=== PATIENT | male | born 1980 | race African-American/Black ===

== ENCOUNTER 2016-11-02 18:48 | Emergency (ER) | payer MEDICAID, OTHER ==
[~2016-11-02] VITALS: Ht 185.4 cm; Wt 98.0 kg
[~2016-11-02 18:48] MED LIST: NO MEDS
[2016-11-02] MEDS ORDERED: ALBUTEROL (0.083%) 2.5MG/3ML NEB HHN STA (21:17)
[2016-11-02] MEDS ORDERED: ONDANSETRON HCL 4MG/2ML VIAL IV ONE (21:30)
[2016-11-02] MEDS ORDERED: KETOROLAC 30MG/ML VIAL IV ONE (21:30)
[2016-11-02] MEDS ORDERED: SODIUM CHLORIDE 0.9% 1,000 ML IV ONE (21:30)
[2016-11-02 22:53] LABS: BASOPHILS % 0.2 % (0.0-2.0); EOSINOPHILS % 0.5 % (0.0-5.0); HEMATOCRIT. 39.9 % (42.0-52.0); HEMOGLOBIN. 13.6 g/dL (14.0-18.0); LYMPHOCYTES % 10.3 % (20.0-50.0); MEAN CORPUSCULAR HEMOGLOBIN 30.7 pg (28.0-32.0); MEAN CORPUSCULAR VOLUME 90.3 fL (80.0-94.0); MEAN PLATELET VOLUME 8.9 fl (7.4-10.4); MONOCYTES % 13.6 % (2.0-8.0); NEUTROPHILS % 75.4 % (40.0-76.0); PLATELET 157 x1000/uL (130-400); RED BLOOD CELL COUNT 4.42 mill/uL (4.7-6.1); RED CELL DISTRIBUTION WIDTH 13.3 % (11.6-14.6); WHITE BLOOD COUNT 9.1 x1000/uL (4.5-11.0)
[2016-11-02 23:08] VITALS: BP 138/75
== END 2016-11-02 23:38 | disposition home or self-care (01) ==
LOC: ER 18:48
DX: J06.9 Acute upper respiratory infection, unspecified (principal); R07.89 Other chest pain; F17.210 Nicotine dependence, cigarettes, uncomplicated; F12.10 Cannabis abuse, uncomplicated
CPT/HCPCS: 36415; 71020; 85025; 87804; 94640; 96374; 96375; 99285; J1885; J2405; J7030; J7611

== ENCOUNTER 2017-09-14 06:03 | Emergency (ER) | payer OTHER ==
[~2017-09-14] VITALS: Ht 188 cm; Wt 123.0 kg
[2017-09-14 07:41] LABS: BASOPHILS % 0.4 % (0.0-2.0); CHLORIDE 106 mEq/L (98-107); HEMATOCRIT. 40.7 % (42.0-52.0); HEMOGLOBIN. 13.7 g/dL (14.0-18.0); LYMPHOCYTES % 33.3 % (20.0-50.0); MEAN CORPUSCULAR HEMOGLOBIN 31.1 pg (28.0-32.0); MEAN CORPUSCULAR VOLUME 92.3 fL (80.0-94.0); MEAN PLATELET VOLUME 8.6 fl (7.4-10.4); MONOCYTES % 9.6 % (2.0-8.0); NEUTROPHILS % 49.7 % (40.0-76.0); PLATELET 223 x1000/uL (130-400); RED BLOOD CELL COUNT 4.41 mill/uL (4.7-6.1); RED CELL DISTRIBUTION WIDTH 11.8 % (11.6-14.6)
[2017-09-14 10:06] LABS: CLARITY URINE CLEAR (CLEAR); COLOR URINE YELLOW (YELLOW); KETONES URINE 1+ (NEGATIVE); LEUKOCYTE ESTERASE URINE NEGATIVE (NEGATIVE); NITRITE URINE NEGATIVE (NEGATIVE); OCCULT BLOOD URINE NEGATIVE (NEGATIVE); PROTEIN URINE NEGATIVE (NEGATIVE); SPECIFIC GRAVITY URINE 1.019 (1.005-1.030); UROBILINOGEN URINE 0.2 E.U./dL (0.2-1.0)
[2017-09-14 10:40] LABS: *AMPHETAMINES SCREEN URINE PRESUMTIVE POSITIVE (NEGATIVE); *BARBITURATES SCREEN URINE NEGATIVE (NEGATIVE); *BENZODIAZEPINES SCREEN URINE NEGATIVE (NEGATIVE); *COCAINE SCREEN URINE NEGATIVE (NEGATIVE); CANNABINOID URINE SCREEN PRESUMTIVE POSITIVE (NEGATIVE); METHADONE URINE SCREEN NEGATIVE (NEGATIVE); OPIATES URINE SCREEN NEGATIVE (NEGATIVE); PHENCYCLIDINE URINE SCREEN NEGATIVE (NEGATIVE)
[2017-09-14 10:46] VITALS: BP 150/86
== END 2017-09-14 10:55 | disposition home or self-care (01) ==
LOC: ER 06:03
DX: R10.13 Epigastric pain (principal); F15.10 Other stimulant abuse, uncomplicated; K76.0 Fatty (change of) liver, not elsewhere classified; F12.10 Cannabis abuse, uncomplicated; F17.210 Nicotine dependence, cigarettes, uncomplicated; Z98.890 Other specified postprocedural states; Z71.6 Tobacco abuse counseling
CPT/HCPCS: 36415; 71045; 76705; 80053; 80305; 81003; 83690; 85025; 93005; 99285; 99406; Z7610

== ENCOUNTER 2017-10-22 10:53 | Emergency (ER) | payer OTHER ==
[~2017-10-22] VITALS: Ht 185.4 cm; Wt 114.0 kg
[2017-10-22] MEDS ORDERED: LORAZEPAM 1MG TABLET PO ONE (11:15)
[2017-10-22] MEDS ORDERED: KETOROLAC 60MG/2ML VIAL IM ONE (11:15)
[2017-10-22 11:41] LABS: BASOPHILS % 1.1 % (0.0-2.0); HEMATOCRIT. 43.2 % (42.0-52.0); HEMOGLOBIN. 14.5 g/dL (14.0-18.0); LYMPHOCYTES % 31.7 % (20.0-50.0); MEAN CORPUSCULAR HEMOGLOBIN 30.9 pg (28.0-32.0); MEAN PLATELET VOLUME 8.2 fl (7.4-10.4); MONOCYTES % 9.3 % (2.0-8.0); NEUTROPHILS % 52.9 % (40.0-76.0); PLATELET 196 x1000/uL (130-400); RED BLOOD CELL COUNT 4.69 mill/uL (4.7-6.1); RED CELL DISTRIBUTION WIDTH 12.6 % (11.6-14.6)
[2017-10-22 11:43] LABS: CHLORIDE 105 mEq/L (98-107)
[2017-10-22 11:44] LABS: PROTHROMBIN TIME 10.4 sec (9.4-11.6)
[2017-10-22 11:46] LABS: ETHANOL BLOOD 17 mg/dL
[2017-10-22 15:19] LABS: *COCAINE SCREEN URINE PRESUMTIVE POSITIVE (NEGATIVE)
[2017-10-22 15:20] LABS: *AMPHETAMINES SCREEN URINE PRESUMTIVE POSITIVE (NEGATIVE); *BARBITURATES SCREEN URINE NEGATIVE (NEGATIVE); *BENZODIAZEPINES SCREEN URINE NEGATIVE (NEGATIVE); CANNABINOID URINE SCREEN PRESUMTIVE POSITIVE (NEGATIVE); METHADONE URINE SCREEN NEGATIVE (NEGATIVE); OPIATES URINE SCREEN NEGATIVE (NEGATIVE); PHENCYCLIDINE URINE SCREEN NEGATIVE (NEGATIVE)
[2017-10-22 17:20] VITALS: BP 142/94
== END 2017-10-22 17:20 | disposition home or self-care (01) ==
LOC: ER 10:53
DX: T43.621A Poisoning by amphetamines, accidental (unintentional), initial encounter (principal); T40.5X1A Poisoning by cocaine, accidental (unintentional), initial encounter; R07.9 Chest pain, unspecified; F17.200 Nicotine dependence, unspecified, uncomplicated; F12.10 Cannabis abuse, uncomplicated; Y92.89 Other specified places as the place of occurrence of the external cause
CPT/HCPCS: 36415; 71045; 80053; 80305; 83880; 84484; 85025; 85610; 93005; 96372; 99285; G0482; J1885; Z7610

== ENCOUNTER 2018-01-28 17:08 | Emergency (ER) | payer OTHER ==
[~2018-01-28] VITALS: Ht 185.4 cm; Wt 100.0 kg
[2018-01-28 20:41] VITALS: BP 145/105
== END 2018-01-28 22:12 | disposition left against medical advice (07) ==
LOC: ER 17:08
DX: M54.5 Low back pain (principal); Z53.21 Procedure and treatment not carried out due to patient leaving prior to being seen by health care provider

== ENCOUNTER 2018-09-16 04:09 | Emergency (ER) | payer OTHER ==
[~2018-09-16] VITALS: Ht 185.4 cm; Wt 82.0 kg
[2018-09-16] MEDS ORDERED: KETOROLAC 60MG/2ML VIAL IM ONE (08:45)
[2018-09-16 09:00] VITALS: BP 148/93
== END 2018-09-16 09:07 | disposition home or self-care (01) ==
LOC: ER 04:09
DX: S69.81XA Other specified injuries of right wrist, hand and finger(s), initial encounter (principal); F17.210 Nicotine dependence, cigarettes, uncomplicated; F12.10 Cannabis abuse, uncomplicated; F15.10 Other stimulant abuse, uncomplicated; Z90.89 Acquired absence of other organs; Y04.0XXA Assault by unarmed brawl or fight, initial encounter; Y93.89 Activity, other specified; Y92.488 Other paved roadways as the place of occurrence of the external cause
CPT/HCPCS: 96372; 99283; J1885; Z7610

== ENCOUNTER 2018-10-09 07:19 | Emergency (ER) | payer OTHER ==
[~2018-10-09] VITALS: Ht 172.7 cm; Wt 68.0 kg
[2018-10-09] MEDS ORDERED: IBUPROFEN 600MG TABLET PO ONE (07:45)
[2018-10-09] MEDS ORDERED: TETANUS, DIPHTHERIA, PERTUSSIS VAC/PF 0.5ML (>7YR OLD) IM ONE (07:45)
[2018-10-09 07:58] VITALS: BP 146/91
== END 2018-10-09 08:27 | disposition home or self-care (01) ==
LOC: ER 07:19
DX: S90.812A Abrasion, left foot, initial encounter (principal); F12.10 Cannabis abuse, uncomplicated; F15.10 Other stimulant abuse, uncomplicated; M79.10 Myalgia, unspecified site; X58.XXXA Exposure to other specified factors, initial encounter; Y93.89 Activity, other specified; Y92.89 Other specified places as the place of occurrence of the external cause; Y99.8 Other external cause status; Z90.49 Acquired absence of other specified parts of digestive tract
CPT/HCPCS: 90471; 90715; 99283

== ENCOUNTER 2019-03-11 12:20 | Emergency (ER) | payer MEDICAID, OTHER ==
[~2019-03-11] VITALS: Ht 185.4 cm; Wt 104.0 kg
[2019-03-11] MEDS ORDERED: TETANUS, DIPHTHERIA, PERTUSSIS VAC/PF 0.5ML (>7YR OLD) IM ONE (13:30)
[2019-03-11] MEDS ORDERED: LIDOCAINE HCL/PF 1% 10 MG/ML 5ML VIAL IJ ONE (13:30)
[2019-03-11] MEDS ORDERED: BACITRACIN ZINC OINT UDPKT TOP ONE (13:30)
[2019-03-11] MEDS ORDERED: BACITRACIN 15GM TUBE TOP NR (15:30)
[2019-03-11 16:10] VITALS: BP 137/80
== END 2019-03-11 16:10 | disposition home or self-care (01) ==
LOC: ER 12:20
DX: S61.216A Laceration without foreign body of right little finger without damage to nail, initial encounter (principal); F17.210 Nicotine dependence, cigarettes, uncomplicated; Z90.89 Acquired absence of other organs; W26.8XXA Contact with other sharp object(s), not elsewhere classified, initial encounter; Y93.89 Activity, other specified; Y92.89 Other specified places as the place of occurrence of the external cause
CPT/HCPCS: 12001; 73140; 90471; 90715; 99283; J3490

== ENCOUNTER 2020-05-24 16:15 | Emergency (ER) | payer OTHER ==
[~2020-05-24] VITALS: Ht 188 cm; Wt 105.0 kg
[2020-05-24] MEDS ORDERED: SODIUM CHLORIDE 0.9% 1,000 ML IV ONE (17:00)
[2020-05-24 18:55] LABS: BASOPHILS % 1.5 % (0.0-2.0); EOSINOPHILS % 7.4 % (0.0-5.0); HEMATOCRIT. 41.1 % (42.0-52.0); HEMOGLOBIN. 13.6 g/dL (14.0-18.0); LYMPHOCYTES % 42.9 % (20.0-50.0); MEAN CORPUSCULAR VOLUME 90.9 fL (80.0-94.0); MEAN PLATELET VOLUME 8.5 fl (7.4-10.4); MONOCYTES % 7.5 % (2.0-8.0); NEUTROPHILS % 40.7 % (40.0-76.0); PLATELET 250 x1000/uL (130-400); RED BLOOD CELL COUNT 4.53 mill/uL (4.7-6.1); RED CELL DISTRIBUTION WIDTH 12.7 % (11.6-14.6)
[2020-05-24 19:02] LABS: CHLORIDE 105 mEq/L (98-107)
[2020-05-24 19:07] LABS: ETHANOL BLOOD < 10 mg/dL
[2020-05-24 20:39] LABS: *AMPHETAMINES SCREEN URINE PRESUMTIVE POSITIVE (NEGATIVE); *BARBITURATES SCREEN URINE NEGATIVE (NEGATIVE); *BENZODIAZEPINES SCREEN URINE NEGATIVE (NEGATIVE)
[2020-05-24 20:40] LABS: *COCAINE SCREEN URINE NEGATIVE (NEGATIVE); CANNABINOID URINE SCREEN PRESUMTIVE POSITIVE (NEGATIVE); METHADONE URINE SCREEN NEGATIVE (NEGATIVE); OPIATES URINE SCREEN NEGATIVE (NEGATIVE); PHENCYCLIDINE URINE SCREEN NEGATIVE (NEGATIVE)
[2020-05-24 21:23] VITALS: BP 136/80
== END 2020-05-24 22:22 | disposition home or self-care (01) ==
LOC: ER 16:15
DX: F15.10 Other stimulant abuse, uncomplicated (principal); F16.10 Hallucinogen abuse, uncomplicated; R07.89 Other chest pain; F17.210 Nicotine dependence, cigarettes, uncomplicated; Z59.0 Homelessness
CPT/HCPCS: 36415; 71045; 80053; 80305; 80320; 83690; 83880; 84484; 85025; 93005; 99285; J7030; G0480

== ENCOUNTER 2020-05-26 23:06 | Emergency (ER) | payer OTHER ==
[~2020-05-26] VITALS: Ht 188 cm; Wt 105.0 kg
[2020-05-27 00:13] VITALS: BP 156/90
== END 2020-05-27 01:59 | disposition home or self-care (01) ==
LOC: ER 23:06
DX: M79.671 Pain in right foot (principal); F15.10 Other stimulant abuse, uncomplicated; J45.909 Unspecified asthma, uncomplicated
CPT/HCPCS: 99283

== ENCOUNTER 2020-06-01 17:01 | Emergency (ER) | payer OTHER ==
[~2020-06-01] VITALS: Ht 182.9 cm; Wt 82.0 kg
[2020-06-01] MEDS ORDERED: SODIUM CHLORIDE 0.9% 1,000 ML IV ONE (19:15)
[2020-06-01 19:26] LABS: HEMATOCRIT. 41.9 % (42.0-52.0); HEMOGLOBIN. 13.8 g/dL (14.0-18.0); MEAN CORPUSCULAR VOLUME 90.7 fL (80.0-94.0); MEAN PLATELET VOLUME 8.4 fl (7.4-10.4); PLATELET 194 x1000/uL (130-400); RED BLOOD CELL COUNT 4.62 mill/uL (4.7-6.1); RED CELL DISTRIBUTION WIDTH 12.4 % (11.6-14.6)
[2020-06-01 19:33] LABS: CHLORIDE 104 mEq/L (98-107)
[2020-06-01 19:38] LABS: ETHANOL BLOOD < 10 mg/dL
[2020-06-01 20:02] LABS: PLATELET ESTIMATE NORMAL
[2020-06-01] MEDS ORDERED: DOXYCYCLINE HYCLATE 100MG CAPSULE PO SCH (22:00)
[2020-06-01 22:30] VITALS: BP 139/88
== END 2020-06-02 00:44 | disposition home or self-care (01) ==
LOC: ER 17:01
DX: J18.9 Pneumonia, unspecified organism (principal); F10.10 Alcohol abuse, uncomplicated; F15.10 Other stimulant abuse, uncomplicated; J45.909 Unspecified asthma, uncomplicated; Z59.0 Homelessness; Y90.0 Blood alcohol level of less than 20 mg/100 ml
CPT/HCPCS: 36415; 71045; 80053; 80320; 82140; 85025; 87635; 93005; 96360; 99285; J7030; G0480

== ENCOUNTER 2020-06-17 23:42 | Emergency (ER) | payer OTHER ==
[~2020-06-17] VITALS: Ht 177.8 cm; Wt 82.0 kg
[2020-06-18 00:53] LABS: BASOPHILS % 1.2 % (0.0-2.0); EOSINOPHILS % 4.4 % (0.0-5.0); HEMATOCRIT. 38.8 % (42.0-52.0); HEMOGLOBIN. 12.9 g/dL (14.0-18.0); LYMPHOCYTES % 40.7 % (20.0-50.0); MEAN CORPUSCULAR HEMOGLOBIN 29.6 pg (28.0-32.0); MEAN CORPUSCULAR VOLUME 89.3 fL (80.0-94.0); MEAN PLATELET VOLUME 7.8 fl (7.4-10.4); MONOCYTES % 7.9 % (2.0-8.0); NEUTROPHILS % 45.8 % (40.0-76.0); PLATELET 260 x1000/uL (130-400); RED BLOOD CELL COUNT 4.35 mill/uL (4.7-6.1); RED CELL DISTRIBUTION WIDTH 12.4 % (11.6-14.6)
[2020-06-18 00:59] LABS: CHLORIDE 107 mEq/L (98-107)
[2020-06-18 01:02] LABS: ETHANOL BLOOD < 10 mg/dL
[2020-06-18 01:13] LABS: CLARITY URINE CLEAR (CLEAR); COLOR URINE YELLOW (YELLOW); KETONES URINE NEGATIVE (NEGATIVE); LEUKOCYTE ESTERASE URINE NEGATIVE (NEGATIVE); NITRITE URINE NEGATIVE (NEGATIVE); OCCULT BLOOD URINE NEGATIVE (NEGATIVE); PH URINE 5.5 (4.5-8.0); PROTEIN URINE TRACE (NEGATIVE); SPECIFIC GRAVITY URINE 1.029 (1.005-1.030)
[2020-06-18 01:22] LABS: *AMPHETAMINES SCREEN URINE PRESUMTIVE POSITIVE (NEGATIVE); *BARBITURATES SCREEN URINE NEGATIVE (NEGATIVE); *BENZODIAZEPINES SCREEN URINE NEGATIVE (NEGATIVE); *COCAINE SCREEN URINE NEGATIVE (NEGATIVE)
[2020-06-18 01:23] LABS: CANNABINOID URINE SCREEN PRESUMTIVE POSITIVE (NEGATIVE); METHADONE URINE SCREEN NEGATIVE (NEGATIVE); OPIATES URINE SCREEN NEGATIVE (NEGATIVE); PHENCYCLIDINE URINE SCREEN NEGATIVE (NEGATIVE)
[2020-06-18 05:30] VITALS: BP 125/79
== END 2020-06-18 05:59 | disposition home or self-care (01) ==
LOC: ER 23:42
DX: R44.1 Visual hallucinations (principal); G93.40 Encephalopathy, unspecified; F17.200 Nicotine dependence, unspecified, uncomplicated; F15.10 Other stimulant abuse, uncomplicated; F19.10 Other psychoactive substance abuse, uncomplicated; J45.909 Unspecified asthma, uncomplicated
CPT/HCPCS: 36415; 80053; 80305; 80320; 81003; 85025; 99283; G0480

== ENCOUNTER 2020-08-04 19:03 | Emergency (ER) | payer OTHER ==
[~2020-08-04] VITALS: Ht 185.4 cm; Wt 82.0 kg
[2020-08-04] MEDS ORDERED: IBUPROFEN 600MG TABLET PO ONE (20:00)
[2020-08-04 20:21] VITALS: BP 142/88
[2020-08-05] MEDS ORDERED: IBUP-2029 MT (09:56)
== END 2020-08-04 20:52 | disposition home or self-care (01) ==
LOC: ER 19:03
DX: B35.3 Tinea pedis (principal); F17.200 Nicotine dependence, unspecified, uncomplicated; F15.10 Other stimulant abuse, uncomplicated
CPT/HCPCS: 99282

== ENCOUNTER 2020-08-05 06:28 | Emergency (ER) | payer MEDICAID, OTHER ==
[~2020-08-05] VITALS: Ht 185.4 cm; Wt 110.0 kg
[2020-08-05] MEDS ORDERED: IBUPROFEN 600MG TABLET PO STA (06:36)
[2020-08-05 08:11] LABS: BASOPHILS % 0.6 % (0.0-2.0); EOSINOPHILS % 6.8 % (0.0-5.0); HEMATOCRIT. 42.6 % (42.0-52.0); HEMOGLOBIN. 13.9 g/dL (14.0-18.0); LYMPHOCYTES % 47.5 % (20.0-50.0); MEAN CORPUSCULAR HEMOGLOBIN 29.5 pg (28.0-32.0); MEAN CORPUSCULAR VOLUME 90.5 fL (80.0-94.0); MEAN PLATELET VOLUME 8.1 fl (7.4-10.4); MONOCYTES % 10.6 % (2.0-8.0); NEUTROPHILS % 34.5 % (40.0-76.0); PLATELET 248 x1000/uL (130-400); RED CELL DISTRIBUTION WIDTH 12.6 % (11.6-14.6)
[2020-08-05 08:19] LABS: CHLORIDE 105 mEq/L (98-107)
[2020-08-05 08:23] LABS: ETHANOL BLOOD < 10 mg/dL
[2020-08-05] MEDS ORDERED: IBUP-2029 MT (09:56)
[2020-08-05 10:45] VITALS: BP 153/91
== END 2020-08-05 11:19 | disposition home or self-care (01) ==
LOC: ER 06:28
DX: M79.10 Myalgia, unspecified site (principal); R07.89 Other chest pain; F15.10 Other stimulant abuse, uncomplicated
CPT/HCPCS: 36415; 71045; 80053; 80320; 84484; 85025; 93005; 99285; G0480

== ENCOUNTER 2020-10-20 01:11 | Emergency (ER) | payer MEDICAID, OTHER ==
[~2020-10-20] VITALS: Ht 185.4 cm; Wt 98.0 kg
[~2020-10-20 01:11] MED LIST changes: +IBUP-2029 MT; -NO MEDS
[2020-10-20 01:28] VITALS: BP 154/100
[2020-10-20] MEDS ORDERED: ECON15CR4 TP (01:41)
== END 2020-10-20 01:59 | disposition home or self-care (01) ==
LOC: ER 01:31
DX: B35.3 Tinea pedis (principal); F15.10 Other stimulant abuse, uncomplicated; J45.909 Unspecified asthma, uncomplicated
CPT/HCPCS: 99281

== ENCOUNTER 2020-10-30 06:07 | Emergency (ER) | payer OTHER ==
[~2020-10-30] VITALS: Ht 185.4 cm; Wt 100.0 kg
[~2020-10-30 06:07] MED LIST changes: +ECON15CR4 TP
[2020-10-30] MEDS ORDERED: ACETAMINOPHEN 325MG TABLET PO ONE (06:45)
[2020-10-30 07:57] LABS: BASOPHILS % 0.7 % (0.0-2.0); EOSINOPHILS % 4.8 % (0.0-5.0); HEMATOCRIT. 36.9 % (42.0-52.0); HEMOGLOBIN. 12.3 g/dL (14.0-18.0); LYMPHOCYTES % 30.3 % (20.0-50.0); MEAN CORPUSCULAR HEMOGLOBIN 29.8 pg (28.0-32.0); MEAN CORPUSCULAR VOLUME 89.6 fL (80.0-94.0); MEAN PLATELET VOLUME 8.6 fl (7.4-10.4); MONOCYTES % 9.2 % (2.0-8.0); PLATELET 237 x1000/uL (130-400); RED BLOOD CELL COUNT 4.13 mill/uL (4.7-6.1); RED CELL DISTRIBUTION WIDTH 12.3 % (11.6-14.6)
[2020-10-30 07:58] LABS: CHLORIDE 106 mEq/L (98-107)
[2020-10-30 08:18] VITALS: BP 151/86
[2020-10-30] MEDS ORDERED: CLOT15CR27 TP (08:43)
[2020-10-30] MEDS ORDERED: BENZ-16 PO (08:43)
[2020-10-30] MEDS ORDERED: TOPUD PO (08:43)
== END 2020-10-30 11:20 | disposition home or self-care (01) ==
LOC: ER 06:07
DX: B34.9 Viral infection, unspecified (principal); R10.13 Epigastric pain; B35.6 Tinea cruris; J45.909 Unspecified asthma, uncomplicated; F15.10 Other stimulant abuse, uncomplicated
CPT/HCPCS: 36415; 71045; 80053; 83880; 84484; 85025; 93005; 99285

== ENCOUNTER 2020-12-12 02:00 | Emergency (ER) | payer OTHER ==
[~2020-12-12] VITALS: Ht 182.9 cm; Wt 91.0 kg
[~2020-12-12 02:00] MED LIST changes: +BENZ-16 PO; +CLOT15CR27 TP; +TOPUD PO
[2020-12-12 02:01] VITALS: BP 155/92
[2020-12-12] MEDS ORDERED: ACETAMINOPHEN 500MG TABLET PO ONE (02:30)
== END 2020-12-12 02:50 | disposition home or self-care (01) ==
LOC: ER 02:00
DX: B35.6 Tinea cruris (principal); F15.10 Other stimulant abuse, uncomplicated; J45.909 Unspecified asthma, uncomplicated; Z91.14 Patient's other noncompliance with medication regimen
CPT/HCPCS: 99283

== ENCOUNTER 2020-12-22 21:32 | Emergency (ER) | payer OTHER ==
[~2020-12-22] VITALS: Ht 185.4 cm; Wt 91.0 kg
[2020-12-22] MEDS ORDERED: METHOCARBAMOL 500MG TABLET PO ONE (22:30)
[2020-12-22] MEDS ORDERED: KETOROLAC 60MG/2ML VIAL IM ONE (22:30)
[2020-12-22 23:08] VITALS: BP 166/94
[2020-12-22] MEDS ORDERED: METH-773 MT (23:23)
[2020-12-22] MEDS ORDERED: NAPR-681 MT (23:23)
== END 2020-12-23 01:09 | disposition home or self-care (01) ==
LOC: ER 21:32
DX: G89.29 Other chronic pain (principal); M54.5 Low back pain; J45.909 Unspecified asthma, uncomplicated; F15.10 Other stimulant abuse, uncomplicated
CPT/HCPCS: 96372; 99283; J1885

== ENCOUNTER 2021-03-07 02:52 | Emergency (ER) | payer MEDICAID, OTHER ==
[~2021-03-07] VITALS: Ht 185.4 cm; Wt 82.0 kg
[~2021-03-07 02:52] MED LIST changes: +METH500T6 MT; +NAPR-681 MT
[2021-03-07] MEDS ORDERED: IBUPROFEN 600MG TABLET PO NR (03:45)
[2021-03-07] MEDS ORDERED: NAPR-681 PO (04:25)
[2021-03-07 04:51] VITALS: BP 164/66
== END 2021-03-07 04:52 | disposition home or self-care (01) ==
LOC: ER 02:52
DX: M79.671 Pain in right foot (principal); M79.672 Pain in left foot; R51.9 Headache, unspecified; K08.89 Other specified disorders of teeth and supporting structures; J45.909 Unspecified asthma, uncomplicated; F15.10 Other stimulant abuse, uncomplicated
CPT/HCPCS: 82962; 99282

== ENCOUNTER 2021-03-23 21:51 | Emergency (ER) | payer MEDICAID ==
[~2021-03-23] VITALS: Ht 185.4 cm; Wt 87.0 kg
[~2021-03-23 21:51] MED LIST changes: +METH-773 MT; -METH500T6 MT; +NAPR-681 PO
[2021-03-23 23:05] LABS: BASOPHILS % 0.6 % (0.0-2.0); EOSINOPHILS % 3.3 % (0.0-5.0); HEMATOCRIT. 39.1 % (42.0-52.0); HEMOGLOBIN. 13.1 g/dL (14.0-18.0); LYMPHOCYTES % 34.9 % (20.0-50.0); MEAN CORPUSCULAR HEMOGLOBIN 29.8 pg (28.0-32.0); MEAN CORPUSCULAR VOLUME 89.3 fL (80.0-94.0); MEAN PLATELET VOLUME 7.6 fl (7.4-10.4); MONOCYTES % 7.6 % (2.0-8.0); NEUTROPHILS % 53.6 % (40.0-76.0); PLATELET 237 x1000/uL (130-400); RED BLOOD CELL COUNT 4.38 mill/uL (4.7-6.1); RED CELL DISTRIBUTION WIDTH 12.7 % (11.6-14.6)
[2021-03-23 23:11] LABS: CHLORIDE 106 mEq/L (98-107)
[2021-03-23 23:16] LABS: ETHANOL BLOOD < 10 mg/dL
[2021-03-23 23:32] LABS: CLARITY URINE CLEAR (CLEAR); COLOR URINE YELLOW (YELLOW); KETONES URINE NEGATIVE (NEGATIVE); LEUKOCYTE ESTERASE URINE NEGATIVE (NEGATIVE); NITRITE URINE NEGATIVE (NEGATIVE); OCCULT BLOOD URINE NEGATIVE (NEGATIVE); PH URINE 6.5 (4.5-8.0); PROTEIN URINE NEGATIVE (NEGATIVE)
[2021-03-23 23:52] LABS: *AMPHETAMINES SCREEN URINE PRESUMTIVE POSITIVE (NEGATIVE); *BARBITURATES SCREEN URINE NEGATIVE (NEGATIVE); CANNABINOID URINE SCREEN PRESUMTIVE POSITIVE (NEGATIVE)
[2021-03-23 23:53] LABS: *BENZODIAZEPINES SCREEN URINE NEGATIVE (NEGATIVE); *COCAINE SCREEN URINE NEGATIVE (NEGATIVE); METHADONE URINE SCREEN NEGATIVE (NEGATIVE); OPIATES URINE SCREEN NEGATIVE (NEGATIVE); PHENCYCLIDINE URINE SCREEN NEGATIVE (NEGATIVE)
[2021-03-24] VITALS: BP 150/92
== END 2021-03-24 00:11 | disposition home or self-care (01) ==
LOC: ER 21:51
DX: F19.10 Other psychoactive substance abuse, uncomplicated (principal); F15.10 Other stimulant abuse, uncomplicated; F12.10 Cannabis abuse, uncomplicated; F10.129 Alcohol abuse with intoxication, unspecified; Y90.9 Presence of alcohol in blood, level not specified; J45.909 Unspecified asthma, uncomplicated
CPT/HCPCS: 36415; 80053; 80305; 80320; 81003; 85025; 99283; G0480

== ENCOUNTER 2021-03-26 08:36 | Emergency (ER) | payer MEDICAID ==
[~2021-03-26] VITALS: Ht 185.4 cm; Wt 91.0 kg
[2021-03-26 08:44] VITALS: BP 160/101
== END 2021-03-26 11:32 | disposition left against medical advice (07) ==
LOC: ER 08:36
DX: Z53.21 Procedure and treatment not carried out due to patient leaving prior to being seen by health care provider (principal)
CPT/HCPCS: 99281

== ENCOUNTER 2021-04-27 00:33 | Emergency (ER) | payer MEDICAID ==
[~2021-04-27] VITALS: Ht 185.4 cm; Wt 100.0 kg
[2021-04-27] MEDS ORDERED: KETOROLAC 60MG/2ML VIAL IM STA (01:04)
[2021-04-27 02:30] VITALS: BP 144/77
[2021-04-27] MEDS ORDERED: HYDR-4001 MT (03:36)
[2021-04-27] MEDS ORDERED: IBUP-2030 PO (03:36)
== END 2021-04-27 05:50 | disposition home or self-care (01) ==
LOC: ER 00:33
DX: S93.402A Sprain of unspecified ligament of left ankle, initial encounter (principal); M54.9 Dorsalgia, unspecified; F15.10 Other stimulant abuse, uncomplicated; J45.909 Unspecified asthma, uncomplicated; V29.9XXA Motorcycle rider (driver) (passenger) injured in unspecified traffic accident, initial encounter; Y93.9 Activity, unspecified; Y92.89 Other specified places as the place of occurrence of the external cause; Y99.8 Other external cause status
CPT/HCPCS: 29515; 71045; 72100; 73610; 96372; 99284; J1885

== ENCOUNTER 2021-05-07 04:30 | Emergency (ER) | payer MEDICAID ==
[~2021-05-07] VITALS: Ht 182.9 cm; Wt 97.0 kg
[~2021-05-07 04:30] MED LIST changes: +HYDR-4001 MT; +IBUP-2030 PO
[2021-05-07 08:40] LABS: CHLORIDE 106 mEq/L (98-107)
[2021-05-07 09:09] LABS: BASOPHILS % 0.6 % (0.0-2.0); EOSINOPHILS % 2.5 % (0.0-5.0); HEMATOCRIT. 40.2 % (42.0-52.0); HEMOGLOBIN. 13.3 g/dL (14.0-18.0); LYMPHOCYTES % 16.5 % (20.0-50.0); MEAN CORPUSCULAR HEMOGLOBIN 29.7 pg (28.0-32.0); MEAN CORPUSCULAR VOLUME 89.5 fL (80.0-94.0); MEAN PLATELET VOLUME 8.5 fl (7.4-10.4); MONOCYTES % 10.5 % (2.0-8.0); NEUTROPHILS % 69.9 % (40.0-76.0); PLATELET 236 x1000/uL (130-400); RED BLOOD CELL COUNT 4.49 mill/uL (4.7-6.1); RED CELL DISTRIBUTION WIDTH 12.4 % (11.6-14.6)
[2021-05-07] MEDS ORDERED: ONDA4TAB5 PO (10:07)
[2021-05-07] MEDS ORDERED: TOPUD PO (10:07)
[2021-05-07 10:17] LABS: CLARITY URINE CLEAR (CLEAR); COLOR URINE YELLOW (YELLOW); KETONES URINE NEGATIVE (NEGATIVE); LEUKOCYTE ESTERASE URINE NEGATIVE (NEGATIVE); NITRITE URINE NEGATIVE (NEGATIVE); OCCULT BLOOD URINE NEGATIVE (NEGATIVE); PROTEIN URINE NEGATIVE (NEGATIVE); SPECIFIC GRAVITY URINE 1.009 (1.005-1.030); UROBILINOGEN URINE 0.2 E.U./dL (0.2-1.0)
[2021-05-07 10:28] VITALS: BP 124/89
== END 2021-05-07 04:38 | disposition home or self-care (01) ==
LOC: ER 04:30
DX: R10.84 Generalized abdominal pain (principal); Z90.89 Acquired absence of other organs; F15.10 Other stimulant abuse, uncomplicated
CPT/HCPCS: 36415; 73620; 74176; 80053; 81003; 85025; 99284

== ENCOUNTER 2021-05-31 07:16 | Emergency (ER) | payer MEDICAID ==
[~2021-05-31] VITALS: Ht 175.3 cm; Wt 82.0 kg
[~2021-05-31 07:16] MED LIST changes: +ONDA4TAB5 PO
[2021-05-31] MEDS ORDERED: NAPR275T96 MT (10:29)
[2021-05-31 11:19] VITALS: BP 168/104
== END 2021-05-31 11:21 | disposition home or self-care (01) ==
LOC: ER 07:16
DX: S93.402A Sprain of unspecified ligament of left ankle, initial encounter (principal); V13.4XXA Pedal cycle driver injured in collision with car, pick-up truck or van in traffic accident, initial encounter; Y93.89 Activity, other specified; Y92.488 Other paved roadways as the place of occurrence of the external cause
CPT/HCPCS: 73610; 99283

== ENCOUNTER 2021-06-10 11:23 | Emergency (ER) | payer MEDICAID ==
[~2021-06-10] VITALS: Ht 185.4 cm; Wt 96.0 kg
[~2021-06-10 11:23] MED LIST changes: +NAPR275T96 MT
[2021-06-10] MEDS ORDERED: KETOROLAC 60MG/2ML VIAL IM ONE (11:45)
[2021-06-10 11:59] VITALS: BP 149/97
== END 2021-06-10 15:05 | disposition home or self-care (01) ==
LOC: ER 11:36
DX: S93.492A Sprain of other ligament of left ankle, initial encounter (principal); V49.49XA Driver injured in collision with other motor vehicles in traffic accident, initial encounter; Y93.89 Activity, other specified; Y92.89 Other specified places as the place of occurrence of the external cause; Y99.8 Other external cause status; Z79.899 Other long term (current) drug therapy
CPT/HCPCS: 29515; 73610; 96372; 99283; J1885; Z7610

== ENCOUNTER 2021-06-12 20:38 | Emergency (ER) | payer MEDICAID ==
[~2021-06-12] VITALS: Ht 185.4 cm; Wt 98.0 kg
[2021-06-12] MEDS ORDERED: IBUPROFEN 600MG TABLET PO STA (23:46)
[2021-06-13] MEDS ORDERED: IBUPROFEN 600MG TABLET PO NR (04:45)
[2021-06-13 04:48] VITALS: BP 150/86
[2021-06-13 09:57] LABS: HEMATOCRIT. 41.5 % (42.0-52.0); HEMOGLOBIN. 13.4 g/dL (14.0-18.0); MEAN CORPUSCULAR HEMOGLOBIN 28.9 pg (28.0-32.0); MEAN CORPUSCULAR VOLUME 89.8 fL (80.0-94.0); PLATELET 178 x1000/uL (130-400); RED BLOOD CELL COUNT 4.62 mill/uL (4.7-6.1); RED CELL DISTRIBUTION WIDTH 12.5 % (11.6-14.6)
[2021-06-13 09:59] LABS: CHLORIDE 106 mEq/L (98-107)
[2021-06-13 10:03] LABS: ETHANOL BLOOD < 10 mg/dL
[2021-06-13 10:35] LABS: PLATELET ESTIMATE NORMAL
[2021-06-13] MEDS ORDERED: AMOX-494 MT (11:10)
[2021-06-13] MEDS ORDERED: KETO15CR2 TP (11:55)
== END 2021-06-13 06:13 | disposition home or self-care (01) ==
LOC: ER 20:38
DX: M54.50 Low back pain, unspecified (principal); M79.10 Myalgia, unspecified site; R94.31 Abnormal electrocardiogram [ECG] [EKG]; J45.909 Unspecified asthma, uncomplicated; Z90.49 Acquired absence of other specified parts of digestive tract
CPT/HCPCS: 36415; 71045; 72100; 80053; 80320; 85025; 93005; 99284; G0480

== ENCOUNTER 2021-06-13 06:15 | Emergency (ER) | payer MEDICAID ==
[~2021-06-13] VITALS: Ht 185.4 cm; Wt 98.0 kg
[2021-06-13 09:22] LABS: CLARITY URINE CLEAR (CLEAR); COLOR URINE YELLOW (YELLOW); KETONES URINE NEGATIVE (NEGATIVE); LEUKOCYTE ESTERASE URINE NEGATIVE (NEGATIVE); NITRITE URINE NEGATIVE (NEGATIVE); OCCULT BLOOD URINE NEGATIVE (NEGATIVE); PH URINE 6.5 (4.5-8.0); PROTEIN URINE NEGATIVE (NEGATIVE); SPECIFIC GRAVITY URINE 1.005 (1.005-1.030); UROBILINOGEN URINE 0.2 E.U./dL (0.2-1.0)
[2021-06-13] MEDS ORDERED: AMOX-494 MT (11:10)
[2021-06-13] MEDS ORDERED: KETO15CR2 TP (11:55)
[2021-06-13 13:00] VITALS: BP 118/79
== END 2021-06-13 13:37 | disposition home or self-care (01) ==
LOC: ER 06:15
DX: B36.0 Pityriasis versicolor (principal); K04.7 Periapical abscess without sinus; J45.909 Unspecified asthma, uncomplicated; Z90.49 Acquired absence of other specified parts of digestive tract
CPT/HCPCS: 81003; 99283

== ENCOUNTER 2021-07-04 00:48 | Emergency (ER) | payer MEDICAID, OTHER ==
[~2021-07-04] VITALS: Ht 185.4 cm; Wt 78.0 kg
[~2021-07-04 00:48] MED LIST changes: +AMOX-494 MT; +KETO15CR2 TP
[2021-07-04] MEDS ORDERED: KETOROLAC 30MG/ML VIAL IV STA (02:04)
[2021-07-04] MEDS ORDERED: ONDANSETRON HCL 4MG/2ML INJ IV STA (02:04)
[2021-07-04] MEDS ORDERED: SODIUM CHLORIDE 0.9% 1,000 ML IV ONE (02:15)
[2021-07-04 02:36] VITALS: BP 156/104
[2021-07-04 02:52] LABS: CHLORIDE 107 mEq/L (98-107)
[2021-07-04 02:54] LABS: BASOPHILS % 0.5 % (0.0-2.0); EOSINOPHILS % 5.4 % (0.0-5.0); HEMATOCRIT. 40.2 % (42.0-52.0); HEMOGLOBIN. 13.1 g/dL (14.0-18.0); LYMPHOCYTES % 47.4 % (20.0-50.0); MEAN CORPUSCULAR HEMOGLOBIN 29.5 pg (28.0-32.0); MEAN CORPUSCULAR VOLUME 90.5 fL (80.0-94.0); MEAN PLATELET VOLUME 8.6 fl (7.4-10.4); MONOCYTES % 10.7 % (2.0-8.0); PLATELET 263 x1000/uL (130-400); RED BLOOD CELL COUNT 4.44 mill/uL (4.7-6.1); RED CELL DISTRIBUTION WIDTH 12.9 % (11.6-14.6)
[2021-07-04 03:50] LABS: CLARITY URINE CLEAR (CLEAR); COLOR URINE YELLOW (YELLOW); KETONES URINE 1+ (NEGATIVE); LEUKOCYTE ESTERASE URINE NEGATIVE (NEGATIVE); NITRITE URINE NEGATIVE (NEGATIVE); OCCULT BLOOD URINE NEGATIVE (NEGATIVE); PROTEIN URINE TRACE (NEGATIVE); SPECIFIC GRAVITY URINE 1.027 (1.005-1.030)
[2021-07-04] MEDS ORDERED: ACET-2708 PO (04:57)
[2021-07-04] MEDS ORDERED: ONDA4TAB5 PO (04:57)
== END 2021-07-04 05:34 | disposition home or self-care (01) ==
LOC: ER 00:48
DX: K29.00 Acute gastritis without bleeding (principal); F10.10 Alcohol abuse, uncomplicated; Y90.9 Presence of alcohol in blood, level not specified; F19.10 Other psychoactive substance abuse, uncomplicated
CPT/HCPCS: 36415; 80053; 81003; 83690; 85025; 96361; 96374; 96375; 99284; J1885; J2405; J7030

== ENCOUNTER 2021-07-24 18:25 | Emergency (ER) | payer OTHER ==
[~2021-07-24] VITALS: Ht 185.4 cm; Wt 95.0 kg
[~2021-07-24 18:25] MED LIST changes: +ACET-2708 PO
[2021-07-25] MEDS ORDERED: IBUP-2029 MT (00:33)
[2021-07-25] MEDS ORDERED: AMOX-494 MT (00:33)
[2021-07-25] MEDS ORDERED: IBUPROFEN 800MG TABLET PO ONE (00:45)
[2021-07-25] MEDS ORDERED: HYDROCODONE/ACETAMINOPHEN 5/325MG TABLET PO ONE (01:15)
[2021-07-25] MEDS ORDERED: HYDR-4001 MT (01:17)
[2021-07-25 01:31] VITALS: BP 160/100
== END 2021-07-25 01:38 | disposition home or self-care (01) ==
LOC: ER 18:25
DX: K08.89 Other specified disorders of teeth and supporting structures (principal); J45.909 Unspecified asthma, uncomplicated
CPT/HCPCS: 99283

== ENCOUNTER 2021-08-14 06:24 | Emergency (ER) | payer OTHER ==
[~2021-08-14] VITALS: Ht 185.4 cm; Wt 100.0 kg
[2021-08-14 06:44] VITALS: BP 144/95
[2021-08-14] MEDS ORDERED: KETO15CR2 TP (07:06)
[2021-08-14] MEDS ORDERED: AMOX-424 PO (07:07)
== END 2021-08-14 07:28 | disposition home or self-care (01) ==
LOC: ER 06:24
DX: B35.3 Tinea pedis (principal); M79.672 Pain in left foot; M79.671 Pain in right foot; J45.909 Unspecified asthma, uncomplicated; Z79.899 Other long term (current) drug therapy
CPT/HCPCS: 99281

== ENCOUNTER 2021-09-10 01:22 | Emergency (ER) | payer OTHER ==
[~2021-09-10] VITALS: Ht 185.4 cm; Wt 108.0 kg
[~2021-09-10 01:22] MED LIST changes: +AMOX-424 PO
[2021-09-10 01:39] VITALS: BP 138/88
[2021-09-10] MEDS ORDERED: IBUP-2030 MT (02:09)
[2021-09-10] MEDS ORDERED: DOXY-326 MT (02:09)
[2021-09-10] MEDS ORDERED: DOXYCYCLINE HYCLATE 100MG CAPSULE PO ONE (02:15)
[2021-09-10] MEDS ORDERED: CEFTRIAXONE SODIUM 500 MG/VIAL IM ONE (02:15)
[2021-09-10] MEDS ORDERED: IBUPROFEN 800MG TABLET PO ONE (02:15)
[2021-09-10] MEDS ORDERED: LIDOCAINE HCL/PF 1% 10 MG/ML 5ML VIAL INFIL ONE (02:15)
[2021-09-10] MEDS ORDERED: LIDOCAINE HCL 1% 10 MG/ML 10ML VIAL IJ SCH (02:45)
== END 2021-09-10 02:59 | disposition home or self-care (01) ==
LOC: ER 01:22
DX: Z20.2 Contact with and (suspected) exposure to infections with a predominantly sexual mode of transmission (principal); M79.10 Myalgia, unspecified site; J45.909 Unspecified asthma, uncomplicated
CPT/HCPCS: 99283; J3490

== ENCOUNTER 2021-10-06 05:34 | Emergency (ER) | payer OTHER ==
[~2021-10-06] VITALS: Ht 175.3 cm; Wt 75.0 kg
[~2021-10-06 05:34] MED LIST changes: +DOXY-326 MT; +IBUP-2030 MT
[2021-10-06 05:36] VITALS: BP 142/76
[2021-10-06] MEDS ORDERED: MAGNESIUM/ALUMINUM HYDROXIDE/SIMETHICONE 30ML UDC PO STA (05:55)
[2021-10-06] MEDS ORDERED: ONDANSETRON 4MG ODT PO STA (05:55)
[2021-10-06 06:28] LABS: CHLORIDE 108 mEq/L (98-107); HEMATOCRIT. 40.4 % (42.0-52.0); HEMOGLOBIN. 13.7 g/dL (14.0-18.0); MEAN CORPUSCULAR HEMOGLOBIN 29.8 pg (28.0-32.0); MEAN CORPUSCULAR VOLUME 87.8 fL (80.0-94.0); MEAN PLATELET VOLUME 8.1 fl (7.4-10.4); PLATELET 242 x1000/uL (130-400); RED BLOOD CELL COUNT 4.61 mill/uL (4.7-6.1); RED CELL DISTRIBUTION WIDTH 12.5 % (11.6-14.6)
[2021-10-06 06:32] LABS: ETHANOL BLOOD < 10 mg/dL
[2021-10-06 10:40] LABS: PLATELET ESTIMATE NORMAL
== END 2021-10-06 08:22 | disposition home or self-care (01) ==
LOC: ER 05:34
DX: R10.13 Epigastric pain (principal); R11.2 Nausea with vomiting, unspecified; J45.909 Unspecified asthma, uncomplicated
CPT/HCPCS: 36415; 80053; 80320; 83690; 85025; 99283; Q0162; G0480

== ENCOUNTER 2021-11-29 00:01 | Emergency (ER) | payer OTHER ==
[~2021-11-29] VITALS: Ht 185.4 cm; Wt 88.6 kg
[2021-11-29 04:00] VITALS: BP 155/98
[2021-11-29 04:06] LABS: BASOPHILS % 1.1 % (0.0-2.0); EOSINOPHILS % 5.2 % (0.0-5.0); HEMATOCRIT. 39.3 % (42.0-52.0); HEMOGLOBIN. 13.1 g/dL (14.0-18.0); LYMPHOCYTES % 51.7 % (20.0-50.0); MEAN CORPUSCULAR HEMOGLOBIN 29.5 pg (28.0-32.0); MEAN CORPUSCULAR VOLUME 88.4 fL (80.0-94.0); MEAN PLATELET VOLUME 7.8 fl (7.4-10.4); MONOCYTES % 8.1 % (2.0-8.0); NEUTROPHILS % 33.9 % (40.0-76.0); PLATELET 242 x1000/uL (130-400); RED BLOOD CELL COUNT 4.44 mill/uL (4.7-6.1); RED CELL DISTRIBUTION WIDTH 12.5 % (11.6-14.6)
[2021-11-29 04:15] LABS: CHLORIDE 108 mEq/L (98-107)
== END 2021-11-29 05:58 | disposition home or self-care (01) ==
LOC: ER 00:01
DX: M62.81 Muscle weakness (generalized) (principal); E87.6 Hypokalemia; J45.909 Unspecified asthma, uncomplicated; Z59.00 Homelessness unspecified
CPT/HCPCS: 36415; 71045; 80053; 84484; 85025; 99284

== ENCOUNTER 2022-02-20 20:10 | Emergency (ER) | payer OTHER ==
[~2022-02-20] VITALS: Ht 185.4 cm; Wt 96.0 kg
[2022-02-20 23:11] LABS: HEMATOCRIT 37.3 % (42.0-52.0); HEMOGLOBIN 12.5 g/dL (14.0-18.0); MEAN CORPUSCULAR HEMOGLOBIN 30.2 pg (28.0-32.0); MEAN CORPUSCULAR VOLUME 90.1 fL (80.0-94.0); PLATELET 218 x1000/uL (130-400); RED BLOOD CELL COUNT 4.14 mill/uL (4.7-6.1); RED CELL DISTRIBUTION WIDTH 13.1 % (11.6-14.6)
[2022-02-20 23:16] LABS: CHLORIDE 106 mEq/L (98-107)
[2022-02-20 23:27] LABS: ETHANOL BLOOD < 10 mg/dL
[2022-02-21 03:49] LABS: CLARITY URINE CLEAR (CLEAR); COLOR URINE YELLOW (YELLOW); KETONES URINE NEGATIVE (NEGATIVE); LEUKOCYTE ESTERASE URINE NEGATIVE (NEGATIVE); NITRITE URINE NEGATIVE (NEGATIVE); OCCULT BLOOD URINE NEGATIVE (NEGATIVE); PROTEIN URINE NEGATIVE (NEGATIVE); SPECIFIC GRAVITY URINE 1.023 (1.005-1.030)
[2022-02-21 04:24] LABS: *AMPHETAMINES SCREEN URINE PRESUMTIVE POSITIVE (NEGATIVE); *BARBITURATES SCREEN URINE NEGATIVE (NEGATIVE); *BENZODIAZEPINES SCREEN URINE NEGATIVE (NEGATIVE); *COCAINE SCREEN URINE NEGATIVE (NEGATIVE); CANNABINOID URINE SCREEN PRESUMTIVE POSITIVE (NEGATIVE); METHADONE URINE SCREEN NEGATIVE (NEGATIVE); OPIATES URINE SCREEN NEGATIVE (NEGATIVE); PHENCYCLIDINE URINE SCREEN NEGATIVE (NEGATIVE)
[2022-02-21 04:56] VITALS: BP 147/89
== END 2022-02-21 04:59 | disposition home or self-care (01) ==
LOC: ER 20:10
DX: F15.10 Other stimulant abuse, uncomplicated (principal); F16.10 Hallucinogen abuse, uncomplicated; F12.10 Cannabis abuse, uncomplicated; M79.10 Myalgia, unspecified site; J45.909 Unspecified asthma, uncomplicated; Z20.822 Contact with and (suspected) exposure to COVID-19; Z87.19 Personal history of other diseases of the digestive system
CPT/HCPCS: 36415; 80053; 80305; 80320; 81003; 84484; 85027; 87426; 93005; 99284; C9803; G0480

== ENCOUNTER 2022-03-31 21:56 | Emergency (ER) | payer OTHER ==
[~2022-03-31] VITALS: Ht 185.4 cm; Wt 93.5 kg
[2022-03-31 22:35] VITALS: BP 166/104
[2022-04-01] MEDS ORDERED: BACITRACIN ZINC OINT UDPKT TOP ONE (05:30)
[2022-04-01] MEDS ORDERED: LIDOCAINE HCL/EPINEPHRINE 1%-EPI 1:100,000 20 ML VIAL INFIL ONE (05:30)
[2022-04-01] MEDS: BACITRACIN ZINC OINT UDPKT TOP NR ×2 (05:45→06:41)
[2022-04-01] MEDS: LIDOCAINE HCL/EPINEPHRINE 1%-EPI 1:100,000 10 ML VIAL IJ NR ×2 (05:45→06:41)
[2022-04-01] MEDS ORDERED: TOPUD PO (06:27)
[2022-04-01] MEDS ORDERED: CEPH500T PO (06:27)
[2022-04-01] MEDS ORDERED: SULF1TAB48 PO (06:27)
== END 2022-04-01 06:45 | disposition home or self-care (01) ==
LOC: ER 21:56
DX: S61.012A Laceration without foreign body of left thumb without damage to nail, initial encounter (principal); S71.111A Laceration without foreign body, right thigh, initial encounter; S60.812A Abrasion of left wrist, initial encounter; J45.909 Unspecified asthma, uncomplicated; Z90.89 Acquired absence of other organs; X99.1XXA Assault by knife, initial encounter; Y93.89 Activity, other specified; Y92.488 Other paved roadways as the place of occurrence of the external cause
CPT/HCPCS: 12004; 99283; J3490; Z7610

== ENCOUNTER 2022-04-07 22:14 | Emergency (ER) | payer OTHER ==
[~2022-04-07] VITALS: Ht 185.4 cm; Wt 93.3 kg
[~2022-04-07 22:14] MED LIST changes: +CEPH500T PO; +SULF1TAB48 PO
[2022-04-07 22:58] VITALS: BP 160/106
[2022-04-08] MEDS ORDERED: CEPH500C2 MT (00:51)
[2022-04-08] MEDS ORDERED: SULF1TAB48 MT (00:51)
[2022-04-08] MEDS ORDERED: CEPHALEXIN 250MG CAPSULE PO NR (01:00)
[2022-04-08] MEDS ORDERED: SULFAMETHOXAZOLE/TRIMETHOPRIM 800/160MG TABLET PO NR (01:00)
== END 2022-04-08 01:14 | disposition home or self-care (01) ==
LOC: ER 22:14
DX: Z48.00 Encounter for change or removal of nonsurgical wound dressing (principal); Z76.0 Encounter for issue of repeat prescription; R03.0 Elevated blood-pressure reading, without diagnosis of hypertension
CPT/HCPCS: 99283

== ENCOUNTER 2022-04-27 16:59 | Emergency (ER) | payer OTHER ==
[~2022-04-27] VITALS: Ht 182.9 cm; Wt 91.0 kg
[~2022-04-27 16:59] MED LIST changes: +CEPH500C2 MT; +SULF1TAB48 MT
[2022-04-27] MEDS ORDERED: DIPHENHYDRAMINE 50MG/ML VIAL IM ONE (18:45)
[2022-04-27] MEDS ORDERED: DIPH25CA83 MT (18:47)
[2022-04-27 19:04] VITALS: BP 137/87
[2022-04-28] MEDS ORDERED: IBUP-2029 MT (03:38)
== END 2022-04-27 19:06 | disposition home or self-care (01) ==
LOC: ER 16:59
DX: T78.40XA Allergy, unspecified, initial encounter (principal); J45.909 Unspecified asthma, uncomplicated; X58.XXXA Exposure to other specified factors, initial encounter
CPT/HCPCS: 96372; 99283; J1200

== ENCOUNTER 2022-04-28 02:27 | Emergency (ER) | payer OTHER ==
[~2022-04-28] VITALS: Ht 185.4 cm; Wt 92.6 kg
[~2022-04-28 02:27] MED LIST changes: +DIPH25CA83 MT
[2022-04-28 02:39] VITALS: BP 163/95
[2022-04-28] MEDS ORDERED: IBUPROFEN 800MG TABLET PO ONE (03:15)
[2022-04-28] MEDS ORDERED: IBUP-2029 MT (03:38)
== END 2022-04-28 04:26 | disposition home or self-care (01) ==
LOC: ER 02:27
DX: M79.672 Pain in left foot (principal); Z79.899 Other long term (current) drug therapy
CPT/HCPCS: 73630; 99283

== ENCOUNTER 2022-06-17 07:48 | Emergency (ER) | payer OTHER ==
[~2022-06-17] VITALS: Ht 182.9 cm; Wt 95.0 kg
[2022-06-17 08:34] VITALS: BP 168/106
[2022-06-17 17:56] LABS: BASOPHILS % 0.7 % (0.0-2.0); CHLORIDE 104 mEq/L (98-107); EOSINOPHILS % 6.3 % (0.0-5.0); HEMATOCRIT. 41.2 % (42.0-52.0); HEMOGLOBIN. 13.5 g/dL (14.0-18.0); LYMPHOCYTES % 43.7 % (20.0-50.0); MEAN CORPUSCULAR HEMOGLOBIN 29.7 pg (28.0-32.0); MEAN CORPUSCULAR VOLUME 90.6 fL (80.0-94.0); MEAN PLATELET VOLUME 8.3 fl (7.4-10.4); MONOCYTES % 8.9 % (2.0-8.0); NEUTROPHILS % 40.4 % (40.0-76.0); PLATELET 242 x1000/uL (130-400); RED BLOOD CELL COUNT 4.55 mill/uL (4.7-6.1); RED CELL DISTRIBUTION WIDTH 12.8 % (11.6-14.6)
== END 2022-06-17 20:15 | disposition home or self-care (01) ==
LOC: ER 07:48
DX: R10.32 Left lower quadrant pain (principal); R42 Dizziness and giddiness; F12.10 Cannabis abuse, uncomplicated
CPT/HCPCS: 36415; 80053; 85025; 99283

== ENCOUNTER 2022-07-05 19:53 | Emergency (ER) | payer OTHER ==
[~2022-07-05] VITALS: Ht 185.4 cm; Wt 96.0 kg
[2022-07-05 19:57] VITALS: BP 155/102
[2022-07-05 22:58] LABS: CLARITY URINE CLEAR (CLEAR); COLOR URINE YELLOW (YELLOW); KETONES URINE NEGATIVE (NEGATIVE); LEUKOCYTE ESTERASE URINE NEGATIVE (NEGATIVE); NITRITE URINE NEGATIVE (NEGATIVE); OCCULT BLOOD URINE NEGATIVE (NEGATIVE); PH URINE 5.5 (4.5-8.0); PROTEIN URINE NEGATIVE (NEGATIVE); SPECIFIC GRAVITY URINE 1.017 (1.005-1.030); UROBILINOGEN URINE 0.2 E.U./dL (0.2-1.0)
== END 2022-07-05 23:30 | disposition home or self-care (01) ==
LOC: ER 19:53
DX: R35.0 Frequency of micturition (principal); Z79.899 Other long term (current) drug therapy
CPT/HCPCS: 81003; 82962; 93005; 99284

== ENCOUNTER 2022-08-18 02:51 | Emergency (ER) | payer OTHER ==
[~2022-08-18] VITALS: Ht 185.4 cm; Wt 100.0 kg
[2022-08-18] MEDS ORDERED: IBUP-2029 MT (03:50)
[2022-08-18] MEDS ORDERED: AMOX-494 PO (03:50)
[2022-08-18] MEDS ORDERED: IBUPROFEN 600MG TABLET PO NR (03:52)
[2022-08-18 04:38] VITALS: BP 145/78
== END 2022-08-18 05:11 | disposition home or self-care (01) ==
LOC: ER 02:51
DX: K02.9 Dental caries, unspecified (principal); J45.909 Unspecified asthma, uncomplicated; Z79.899 Other long term (current) drug therapy
CPT/HCPCS: 99283

== ENCOUNTER 2022-10-20 03:09 | Emergency (ER) | payer OTHER ==
[~2022-10-20] VITALS: Ht 185.4 cm; Wt 86.0 kg
[~2022-10-20 03:09] MED LIST changes: +AMOX-494 PO; -DOXY-326 MT; +DOXY-456 MT
[2022-10-20] MEDS ORDERED: KETOROLAC 60MG/2ML VIAL IM ONE (05:30)
[2022-10-20] MEDS ORDERED: IBUP-2029 MT (06:00)
[2022-10-20] MEDS ORDERED: AMOX-494 MT (06:00)
[2022-10-20] MEDS ORDERED: CHLO473M2 MT (06:00)
[2022-10-20 06:03] VITALS: BP 148/72
== END 2022-10-20 06:30 | disposition home or self-care (01) ==
LOC: ER 03:09
DX: K04.7 Periapical abscess without sinus (principal); J45.909 Unspecified asthma, uncomplicated; K21.9 Gastro-esophageal reflux disease without esophagitis; Z79.899 Other long term (current) drug therapy
CPT/HCPCS: 96372; 99283; J1885; Z7610

== ENCOUNTER 2022-11-13 03:06 | Emergency (ER) | payer OTHER ==
[~2022-11-13] VITALS: Ht 185.4 cm; Wt 96.6 kg
[~2022-11-13 03:06] MED LIST changes: +CHLO473M2 MT
[2022-11-13 03:15] VITALS: BP 166/110
[2022-11-13] MEDS ORDERED: NEOM28.43 TP (04:57)
== END 2022-11-13 05:48 | disposition home or self-care (01) ==
LOC: ER 03:06
DX: S30.861A Insect bite (nonvenomous) of abdominal wall, initial encounter (principal); S00.86XA Insect bite (nonvenomous) of other part of head, initial encounter; S30.860A Insect bite (nonvenomous) of lower back and pelvis, initial encounter; J45.909 Unspecified asthma, uncomplicated; Z79.899 Other long term (current) drug therapy; W57.XXXA Bitten or stung by nonvenomous insect and other nonvenomous arthropods, initial encounter; Y93.89 Activity, other specified; Y92.89 Other specified places as the place of occurrence of the external cause; Y99.8 Other external cause status
CPT/HCPCS: 99282

== ENCOUNTER 2023-02-21 00:06 | Emergency (ER) | payer OTHER ==
[~2023-02-21] VITALS: Ht 182.9 cm; Wt 91.0 kg
[~2023-02-21 00:06] MED LIST changes: +NEOM28.43 TP
[2023-02-21 01:00] VITALS: TEMP 98.7; O2SAT 99
[2023-02-21] MEDS ORDERED: IBUP-2029 MT (02:58)
[2023-02-21] MEDS ORDERED: AM250 MT (02:58)
[2023-02-21 03:00] VITALS: BP 144/94; PULSE 79; RESP 17
[2023-02-21] MEDS ORDERED: IBUPROFEN 600MG TABLET PO ONE (03:00)
== END 2023-02-21 03:23 | disposition home or self-care (01) ==
LOC: ER 00:06
DX: K04.7 Periapical abscess without sinus (principal); Z79.899 Other long term (current) drug therapy
CPT/HCPCS: 99283

== ENCOUNTER 2023-05-28 12:23 | Emergency (ER) | payer OTHER ==
[~2023-05-28] VITALS: Ht 180.3 cm; Wt 95.0 kg
[~2023-05-28 12:23] MED LIST changes: +AM250 MT; +METH-653 MT; -METH-773 MT
[2023-05-28 12:37] VITALS: BP 178/96; PULSE 94; RESP 18; TEMP 98.4; O2SAT 99
[2023-05-28 14:30] LABS: BASOPHILS % 0.9 % (0.0-2.0); EOSINOPHILS % 3.3 % (0.0-5.0); HEMATOCRIT. 39.4 % (42.0-52.0); LYMPHOCYTES % 40.4 % (20.0-50.0); MEAN CORPUSCULAR HEMOGLOBIN 29.7 pg (28.0-32.0); MEAN CORPUSCULAR VOLUME 90.1 fL (80.0-94.0); MEAN PLATELET VOLUME 8.3 fl (7.4-10.4); MONOCYTES % 5.4 % (2.0-8.0); PLATELET 260 x1000/uL (130-400); RED BLOOD CELL COUNT 4.37 mill/uL (4.7-6.1); RED CELL DISTRIBUTION WIDTH 12.9 % (11.6-14.6); WHITE BLOOD COUNT 4.2 x1000/uL (4.5-11.0)
[2023-05-28 14:50] LABS: ALANINE AMINOTRANSFERASE 35 IU/L (10-49); ALBUMIN 3.8 g/dL (3.2-4.8); ASPARTATE AMINOTRANSFERASE 38 IU/L (<34); CALCIUM 8.4 mg/dL (8.7-10.4); CARBON DIOXIDE 27 mEq/L (21-32); CHLORIDE 103 mEq/L (98-107); CREATININE 0.9 mg/dL (0.6-1.3); GLUCOSE 99 mg/dL (70-105); POTASSIUM 3.3 mEq/L (3.5-5.1); PROTEIN TOTAL 6.5 g/dL (6.0-8.3); SODIUM 138 mEq/L (136-145); UREA NITROGEN BLOOD 9 mg/dL (9-23)
== END 2023-05-28 15:19 | disposition home or self-care (01) ==
LOC: ER 12:23
DX: H57.89 Other specified disorders of eye and adnexa (principal); K21.9 Gastro-esophageal reflux disease without esophagitis; Z79.899 Other long term (current) drug therapy
CPT/HCPCS: 36415; 80053; 85025; 99283

== ENCOUNTER 2023-07-16 21:17 | Emergency (ER) | payer OTHER ==
[~2023-07-16] VITALS: Ht 185.4 cm; Wt 97.5 kg
[2023-07-16 21:43] VITALS: O2SAT 99
[2023-07-17] MEDS ORDERED: AMOX-494 MT (02:46)
[2023-07-17] MEDS ORDERED: NAPR-681 PO (02:46)
[2023-07-17 03:21] VITALS: BP 128/70; PULSE 68; RESP 18; TEMP 98.1
== END 2023-07-17 03:25 | disposition home or self-care (01) ==
LOC: ER 21:17
DX: L84 Corns and callosities (principal); M72.2 Plantar fascial fibromatosis; Z79.899 Other long term (current) drug therapy
CPT/HCPCS: 73630; 99283

== ENCOUNTER 2023-07-25 22:13 | Emergency (ER) | payer OTHER ==
[2023-07-25 22:45] VITALS: PULSE 78; RESP 20
== END 2023-07-26 02:16 | disposition left against medical advice (07) ==
LOC: ER 22:13
DX: M79.606 Pain in leg, unspecified (principal); Z53.21 Procedure and treatment not carried out due to patient leaving prior to being seen by health care provider
CPT/HCPCS: 99281

== ENCOUNTER 2023-08-06 13:22 | Emergency (ER) | payer OTHER ==
[~2023-08-06] VITALS: Ht 175.3 cm; Wt 82.0 kg
[2023-08-06 13:29] VITALS: TEMP 98.3; O2SAT 100
[2023-08-06 16:01] LABS: BASOPHILS % 0.7 % (0.0-2.0); EOSINOPHILS % 2.4 % (0.0-5.0); HEMATOCRIT. 40.6 % (42.0-52.0); HEMOGLOBIN. 12.9 g/dL (14.0-18.0); LYMPHOCYTES % 37.9 % (20.0-50.0); MEAN CORPUSCULAR HEMOGLOBIN 28.9 pg (28.0-32.0); MEAN CORPUSCULAR HGB CONC 31.9 g/dL (31.0-37.0); MEAN CORPUSCULAR VOLUME 90.6 fL (80.0-94.0); MONOCYTES % 13.6 % (2.0-8.0); NEUTROPHILS % 45.4 % (40.0-76.0); PLATELET 211 x1000/uL (130-400); RED BLOOD CELL COUNT 4.48 mill/uL (4.7-6.1); RED CELL DISTRIBUTION WIDTH 12.4 % (11.6-14.6); WHITE BLOOD COUNT 2.5 x1000/uL (4.5-11.0)
[2023-08-06 16:12] LABS: PROTHROMBIN TIME 11.2 sec (9.6-11.0)
[2023-08-06] MEDS ORDERED: SODIUM CHLORIDE 0.9% 1,000 ML IV ONE (16:30)
[2023-08-06] MEDS ORDERED: PANTOPRAZOLE SODIUM 40 MG/VIAL IV ONE (16:30)
[2023-08-06] MEDS ORDERED: ACETAMINOPHEN 325MG TABLET PO ONE (16:30)
[2023-08-06 17:11] LABS: ALANINE AMINOTRANSFERASE 43 IU/L (10-49); ASPARTATE AMINOTRANSFERASE 39 IU/L (<34); BILIRUBIN TOTAL 0.9 mg/dL (0.1-1.0); CALCIUM 9.1 mg/dL (8.7-10.4); CARBON DIOXIDE 24 mEq/L (21-32); CHLORIDE 105 mEq/L (98-107); GLUCOSE 88 mg/dL (70-105); POTASSIUM 3.6 mEq/L (3.5-5.1); PROTEIN TOTAL 6.5 g/dL (6.0-8.3); SODIUM 136 mEq/L (136-145); TROPONIN I HIGH SENSITIVITY 9 ng/L (3.0-53); UREA NITROGEN BLOOD 9 mg/dL (9-23)
[2023-08-06 18:46] LABS: CLARITY URINE CLEAR (CLEAR); COLOR URINE YELLOW (YELLOW); GLUCOSE URINE NEGATIVE (NEGATIVE); KETONES URINE NEGATIVE (NEGATIVE); LEUKOCYTE ESTERASE URINE NEGATIVE (NEGATIVE); NITRITE URINE NEGATIVE (NEGATIVE); OCCULT BLOOD URINE NEGATIVE (NEGATIVE); PH URINE 5.5 (4.5-8.0); PROTEIN URINE NEGATIVE (NEGATIVE); SPECIFIC GRAVITY URINE 1.005 (1.005-1.030); UROBILINOGEN URINE 0.2 E.U./dL (0.2-1.0)
[2023-08-06] MEDS ORDERED: GABA-532 MT (22:52)
[2023-08-06] MEDS ORDERED: ACET-2708 PO (22:52)
[2023-08-06] MEDS ORDERED: IBUP-2030 MT (22:52)
[2023-08-06 23:27] VITALS: BP 156/96; PULSE 67; RESP 14
== END 2023-08-06 23:29 | disposition home or self-care (01) ==
LOC: ER 13:22
DX: M46.96 Unspecified inflammatory spondylopathy, lumbar region (principal); K21.9 Gastro-esophageal reflux disease without esophagitis; Z20.822 Contact with and (suspected) exposure to COVID-19
CPT/HCPCS: 99285; 74176; 96374; 96361; 87426; 80053; 81003; 83690; 85025; 85610; 84484; 36415; 93005; C9113; J7030

== ENCOUNTER 2023-08-19 12:10 | Emergency (ER) | payer OTHER ==
[~2023-08-19] VITALS: Ht 185.4 cm; Wt 97.5 kg
[~2023-08-19 12:10] MED LIST changes: +GABA-532 MT
[2023-08-19 15:02] LABS: BG CARBOXYHEMOGLOBIN 2.2 % (0.5-1.5); BG DEOXYHEMOGLOBIN 1.5 % (0.0-5.0); BG FRACTION INSPIRED OXYGEN 21; BG HCO3 ACT 22.1 mmol/L (22.0-26.0); BG METHEMOGLOBIN 0.2 % (0.0-1.5); BG OXYGEN SATURATION 98.5 % (92.0-98.5); BG OXYHEMOGLOBIN 96.1 % (94.0-97.0); BG PCO2 32.2 mmHg (35.0-45.0); BG PH 7.454 (7.350-7.450); BG SAMPLE SITE RIGHT BRACHIAL; BG TOTAL HEMOGLOBIN 14.2 g/dL (12.0-18.0); BG VENT MODE ROOM AIR
[2023-08-19 16:10] VITALS: BP 167/89; TEMP 98.7
[2023-08-19] MEDS: ALBUTEROL (0.083%) 2.5MG/3ML NEB HHN STA (16:20)
[2023-08-19] MEDS: IPRATROPIUM BROMIDE (0.02%) 0.5MG/2.5ML NEB HHN STA (16:20)
[2023-08-19 16:28] VITALS: PULSE 89; RESP 18; O2SAT 99
== END 2023-08-19 18:39 | disposition home or self-care (01) ==
LOC: ER 12:10
DX: T59.811A Toxic effect of smoke, accidental (unintentional), initial encounter (principal); F17.290 Nicotine dependence, other tobacco product, uncomplicated; F15.10 Other stimulant abuse, uncomplicated; F12.10 Cannabis abuse, uncomplicated; Z79.899 Other long term (current) drug therapy; Y92.9 Unspecified place or not applicable
CPT/HCPCS: 71045; 94640; 82805; 82375; 99284; 99406; 36600; Z7610 ×3; 96360

== ENCOUNTER 2023-10-22 06:02 | Emergency (ER) | payer OTHER ==
[~2023-10-22] VITALS: Ht 185.4 cm; Wt 102.0 kg
[2023-10-22 06:18] VITALS: O2SAT 98
[2023-10-22] MEDS: IBUPROFEN 600MG TABLET PO ONE (08:40)
[2023-10-22 08:49] VITALS: BP 138/90; PULSE 88; RESP 18; TEMP 98.7
== END 2023-10-22 08:50 | disposition home or self-care (01) ==
LOC: ER 06:26
DX: S40.022A Contusion of left upper arm, initial encounter (principal); F15.10 Other stimulant abuse, uncomplicated; F12.10 Cannabis abuse, uncomplicated; Z79.899 Other long term (current) drug therapy; Y04.0XXA Assault by unarmed brawl or fight, initial encounter; Y93.89 Activity, other specified; Y92.89 Other specified places as the place of occurrence of the external cause; Y99.8 Other external cause status
CPT/HCPCS: 73090; 99283

== ENCOUNTER 2024-02-09 22:52 | Emergency (ER) | payer OTHER ==
[~2024-02-09] VITALS: Ht 185.4 cm; Wt 100.0 kg
[2024-02-09 23:35] VITALS: TEMP 98.2; O2SAT 96
[2024-02-10 01:08] LABS: BASOPHILS % 0.9 % (0.0-2.0); EOSINOPHILS % 7.8 % (0.0-5.0); HEMATOCRIT. 37.9 % (42.0-52.0); HEMOGLOBIN. 12.3 g/dL (14.0-18.0); LYMPHOCYTES % 51.3 % (20.0-50.0); MEAN CORPUSCULAR HEMOGLOBIN 29.5 pg (28.0-32.0); MEAN CORPUSCULAR HGB CONC 32.5 g/dL (31.0-37.0); MEAN CORPUSCULAR VOLUME 90.8 fL (80.0-94.0); MEAN PLATELET VOLUME 8.3 fl (7.4-10.4); PLATELET 212 x1000/uL (130-400); RED BLOOD CELL COUNT 4.17 mill/uL (4.7-6.1); RED CELL DISTRIBUTION WIDTH 12.7 % (11.6-14.6); WHITE BLOOD COUNT 4.3 x1000/uL (4.5-11.0)
[2024-02-10 01:29] LABS: CHLORIDE 110 mEq/L (98-107); POTASSIUM 3.8 mEq/L (3.5-5.1); SODIUM 141 mEq/L (136-145)
[2024-02-10 01:30] LABS: CARBON DIOXIDE 29 mEq/L (21-32)
[2024-02-10 01:35] LABS: GLUCOSE 91 mg/dL (70-105); UREA NITROGEN BLOOD 13 mg/dL (9-23)
[2024-02-10 01:37] LABS: ALANINE AMINOTRANSFERASE 26 IU/L (10-49); ALBUMIN 3.8 g/dL (3.2-4.8); ASPARTATE AMINOTRANSFERASE 25 IU/L (<34)
[2024-02-10 01:38] LABS: PROTEIN TOTAL 6.2 g/dL (6.0-8.3)
[2024-02-10 01:39] VITALS: BP 138/83; PULSE 89; RESP 18
[2024-02-10] MEDS: IBUPROFEN 400MG TABLET PO ONE (01:39)
[2024-02-10 02:13] LABS: ERYTHROCYTE SEDIMENTATION RATE 2 mm/hr (0-15)
[2024-02-10] MEDS ORDERED: BO1 TP (02:48)
[2024-02-10] MEDS ORDERED: DOXY100C5 MT (02:48)
[2024-02-10] MEDS ORDERED: IBUP-2029 MT (05:26)
== END 2024-02-10 03:12 | disposition home or self-care (01) ==
LOC: ER 22:52
DX: L84 Corns and callosities (principal); F12.10 Cannabis abuse, uncomplicated; F15.10 Other stimulant abuse, uncomplicated; Z79.899 Other long term (current) drug therapy
CPT/HCPCS: 36415; 73630; 80053; 85025; 85651; 99284

== ENCOUNTER 2024-02-10 03:31 | Emergency (ER) | payer OTHER ==
[~2024-02-10] VITALS: Ht 177.8 cm; Wt 88.0 kg
[~2024-02-10 03:31] MED LIST changes: +BO1 TP; +DOXY100C5 MT
[2024-02-10 03:48] VITALS: BP 137/86; PULSE 81; RESP 18; TEMP 98.3; O2SAT 100
[2024-02-10] MEDS ORDERED: IBUP-2029 MT (05:26)
== END 2024-02-10 05:49 | disposition home or self-care (01) ==
LOC: ER 04:42
DX: L84 Corns and callosities (principal); F12.10 Cannabis abuse, uncomplicated; F15.10 Other stimulant abuse, uncomplicated; Z79.899 Other long term (current) drug therapy
CPT/HCPCS: 99282

== ENCOUNTER 2024-06-03 01:10 | Emergency (ER) | payer OTHER ==
[~2024-06-03] VITALS: Ht 185.4 cm; Wt 98.0 kg
[~2024-06-03 01:10] MED LIST changes: -DOXY-456 MT; +DOXY100C74 MT; +GABA-1180 MT; -GABA-532 MT
[2024-06-03 01:26] VITALS: O2SAT 98
[2024-06-03 03:44] LABS: CHLORIDE 109 mEq/L (98-107); POTASSIUM 3.4 mEq/L (3.5-5.1); SODIUM 140 mEq/L (136-145)
[2024-06-03 03:45] LABS: CARBON DIOXIDE 25 mEq/L (21-32)
[2024-06-03 03:46] LABS: CALCIUM 9.2 mg/dL (8.7-10.4)
[2024-06-03 03:50] LABS: GLUCOSE 89 mg/dL (70-105); UREA NITROGEN BLOOD 16 mg/dL (9-23)
[2024-06-03 03:51] LABS: TROPONIN I HIGH SENSITIVITY 13 ng/L (3.0-53)
[2024-06-03 04:08] LABS: BASOPHILS % 0.7 % (0.0-2.0); EOSINOPHILS % 3.8 % (0.0-5.0); HEMATOCRIT. 38.9 % (42.0-52.0); HEMOGLOBIN. 12.9 g/dL (14.0-18.0); LYMPHOCYTES % 37.3 % (20.0-50.0); MEAN CORPUSCULAR HGB CONC 33.1 g/dL (31.0-37.0); MEAN CORPUSCULAR VOLUME 90.5 fL (80.0-94.0); MEAN PLATELET VOLUME 8.5 fl (7.4-10.4); MONOCYTES % 7.6 % (2.0-8.0); NEUTROPHILS % 50.6 % (40.0-76.0); PLATELET 218 x1000/uL (130-400); RED CELL DISTRIBUTION WIDTH 12.6 % (11.6-14.6)
[2024-06-03 05:00] VITALS: BP 159/92; PULSE 89; RESP 20; TEMP 37.11408; O2SAT 99
== END 2024-06-03 05:27 | disposition home or self-care (01) ==
LOC: ER 01:10
DX: R06.02 Shortness of breath (principal); F12.10 Cannabis abuse, uncomplicated; F15.10 Other stimulant abuse, uncomplicated; J45.909 Unspecified asthma, uncomplicated; E11.9 Type 2 diabetes mellitus without complications; Z79.899 Other long term (current) drug therapy
CPT/HCPCS: 80048; 83880; 85025; 84484; 36415; 71045; 93005; 99285; Z7610 ×3

== ENCOUNTER 2024-08-21 23:58 | Emergency (ER) | payer OTHER ==
[~2024-08-21] VITALS: Ht 185.4 cm; Wt 97.3 kg
[2024-08-22 00:19] VITALS: BP 176/98; PULSE 74; RESP 16; TEMP 37.1; O2SAT 97
[2024-08-22] MEDS ORDERED: AMOX1TAB16 MT (01:46)
[2024-08-22] MEDS: KETOROLAC 15MG/ML VIAL IM ONE (02:44)
== END 2024-08-22 03:14 | disposition home or self-care (01) ==
LOC: ER 08-22 00:09
DX: K04.7 Periapical abscess without sinus (principal); K02.9 Dental caries, unspecified; L84 Corns and callosities; F10.90 Alcohol use, unspecified, uncomplicated; F12.90 Cannabis use, unspecified, uncomplicated; F15.90 Other stimulant use, unspecified, uncomplicated; Z79.1 Long term (current) use of non-steroidal anti-inflammatories (NSAID); Y90.9 Presence of alcohol in blood, level not specified
CPT/HCPCS: 99283

== ENCOUNTER 2024-12-28 11:13 | Emergency (ER) | payer OTHER ==
[~2024-12-28] VITALS: Ht 185.4 cm; Wt 88.6 kg
[~2024-12-28 11:13] MED LIST changes: +AMOX1TAB16 MT; +DOXY-461 MT; -DOXY100C74 MT
[2024-12-28 11:27] VITALS: O2SAT 99
[2024-12-28] MEDS: IBUPROFEN 400MG TABLET PO ONE (12:30)
[2024-12-28] MEDS: LIDOCAINE 5% PATCH TOP SCH (13:46)
[2024-12-28] MEDS ORDERED: AMOX1TAB16 MT (14:34)
[2024-12-28 14:42] VITALS: BP 152/97; PULSE 95; RESP 16; TEMP 36.9; O2SAT 99
== END 2024-12-28 15:07 | disposition home or self-care (01) ==
LOC: ER 11:13
DX: J40 Bronchitis, not specified as acute or chronic (principal); F12.90 Cannabis use, unspecified, uncomplicated; F15.90 Other stimulant use, unspecified, uncomplicated; I10 Essential (primary) hypertension; Z90.89 Acquired absence of other organs
CPT/HCPCS: 71045; 72100; 99284

== ENCOUNTER 2025-06-16 07:02 | Emergency (ER) | payer OTHER ==
[~2025-06-16] VITALS: Ht 180.3 cm; Wt 91.0 kg
[~2025-06-16 07:02] MED LIST changes: +IBUP-1455 MT; -IBUP-2029 MT
[2025-06-16 07:04] VITALS: O2SAT 97
[2025-06-16 07:17] VITALS: BP 146/100; PULSE 98; RESP 18; TEMP 36.9; O2SAT 98
[2025-06-16] MEDS ORDERED: ACETAMINOPHEN 325MG TABLET PO ONE (10:15)
== END 2025-06-16 10:45 | disposition home or self-care (01) ==
LOC: ER 07:02
DX: M79.18 Myalgia, other site (principal); F12.90 Cannabis use, unspecified, uncomplicated; F15.90 Other stimulant use, unspecified, uncomplicated; Z79.899 Other long term (current) drug therapy
CPT/HCPCS: 99282